=== PATIENT | male | born 1985 | race Caucasian/White ===

== ENCOUNTER 2017-06-12 22:21 | Emergency (ER) | payer SELFPAY ==
[~2017-06-12] VITALS: Ht 167.6 cm; Wt 100.0 kg
[2017-06-12 22:30] VITALS: BP 154/82
[2017-06-12] MEDS ORDERED: PERTUSS(ACELL),DIPH,TET VAC/PF 0.5 ML VIAL IM ONE (23:00)
[2017-06-12] MEDS ORDERED: IBUPROFEN 800 MG TABLET PO ONE (23:00)
[2017-06-12] MEDS ORDERED: POVIDONE-IODINE 10% 15 ML SOLUTION UD TP ONE (23:15)
== END 2017-06-12 23:09 | disposition home or self-care (01) ==
LOC: EMS 22:23
DX: S61.250A Open bite of right index finger without damage to nail, initial encounter (principal); W53.11XA Bitten by rat, initial encounter; Y93.89 Activity, other specified; Y92.89 Other specified places as the place of occurrence of the external cause; Y99.8 Other external cause status
CPT/HCPCS: 90471; 90715; 99283